=== PATIENT | female | born 1970 | race Caucasian/White ===

== ENCOUNTER 2017-04-18 00:44 | Emergency (ER) | payer OTHER, SELFPAY ==
[2017-04-18 00:51] VITALS: O2SAT 97
[2017-04-18] MEDS ORDERED: Sodium Chloride 0.9% 1000 ML 1,000 ML IV STA (01:08)
[2017-04-18] MEDS ORDERED: TORAdol 30 mg Injection IV ONE (01:08)
[2017-04-18] MEDS ORDERED: Vistaril 50 MG/ML IM ONE ×2 (01:09→01:14)
[2017-04-18 01:12] LABS: BASOPHIL % 0.2 % (0.0-0.4); Eosinophil % 1.6 % (0.00-5.0); Granulocytes % 55.4 % (36.0-66.0); Lymphocytes % 35.4 % (24.0-44.0); Mean Cell Volume 87.8 fl (78-100); Mean Corpuscular Hemoglobin 29.1 pg (26-32); Mean Platelet Volume 9.9 fl (6-9.5); Monocytes % 7.4 % (0.0-12.0); Platelet Count 367 K/mm3 (150-450); Red Blood Count 4.84 M/mm3 (4.1-5.4); Red Cell Distribution Width 13.6 % (11.5-14.0); White Blood Count 11.4 K/mm3 (4.0-10.5)
[2017-04-18] MEDS ORDERED: TORAdol 30 mg Injection ONE (01:14)
[2017-04-18] MEDS ORDERED: Sodium Chloride 0.9% 1000 ML 1,000 ML ONE (01:14)
--- NOTE | 2017-04-18 01:16 | ERPHSYRPT ---
- History of Present Illness Time Seen by Provider: 04/18/17 00:50 Source: patient Patient Subjective Stated Complaint: PT REPORTS LEFT LOW BACK PAIN RADIAITNG TO GROIN BEGINNING YESTERDAY-DENIES OBVIOUS BLOOD BURNING OR ITCHING WITH URINATION -STATES SHE HAS HAD KIDNEY STONES IN THE PAST ET IT FEELS LIKE THAT Triage Nursing Assessment: PT PINK WARM ET DRY-ABD TENDER TO PALP-RESP NONLABORED-NO OBVIOUS SIGNS OF INJURY ET PT DENIES INJURY Physician History: CC: left flank pain hx: 46 y/o patient from [place]. She has hx of kidney stones. She had three prior CT scans. She reports pain in left flank since yesterday. Normal urination. No fever or chills. No vomiting. Pain is sharp and severe. She is staying with her son who lives in [place]. She has a boyfriend named Natan in the car- he is the carbonr [facility] in [place] and she travels with him. Timing/Duration: yesterday Severity: severe Allergies/Adverse Reactions: acetaminophen [From Tylenol-Codeine #3] Allergy (Mild, Verified 04/18/17 00:46) Hives codeine phosphate [From Tylenol-Codeine #3] Allergy (Mild, Verified 04/18/17 00: 46) Hives Home Medications: No Home Meds 1 ea [facility] UD 02/06/16 [History] Hx Tetanus, Diphtheria Vaccination/Date Given: Yes Hx Influenza Vaccination/Date Given: No Hx Pneumococcal Vaccination/Date Given: No Immunizations Up to Date: Yes - Review of Systems Constitutional: No Fever, No Chills Eyes: No Symptoms Ears, Nose, & Throat: No Symptoms Respiratory: No Cough Cardiac: No Chest Pain Abdominal/Gastrointestinal: No Abdominal Pain, No Nausea, No Vomiting Genitourinary Symptoms: Flank Pain (left), No Dysuria, No Hematuria All Other Systems: Reviewed and Negative - Past Medical History Pertinent Past Medical History: Yes Neurological History: No Pertinent History ENT History: No Pertinent History Cardiac History: High Cholesterol Respiratory History: No Pertinent History Endocrine Medical History: Diabetes Type II Musculoskeletal History: No Pertinent History, Degenerative Disk Disease, Fractures, Other GI Medical History: No Pertinent History History: No Pertinent History Psycho-Social History: No Pertinent History Female Reproductive Disorders: No Pertinent History Other Medical History: back injury - Past Surgical History Past Surgical History: Yes Neuro Surgical History: No Pertinent History Cardiac: No Pertinent History Respiratory: No Pertinent History Gastrointestinal: Appendectomy Genitourinary: No Pertinent History Musculoskeletal: No Pertinent History Female Surgical History: Section, Hysterectomy, Tubal Ligation - Social History Smoking Status: Current every day smoker How long have you smoked: 36 Exposure to second hand smoke: Yes Drug Use: none Patient Lives Alone: No - Nursing Vital Signs Nursing Vital Signs: Initial Vital Signs Temperature 97.6 F Temperature Source Oral Pulse Rate 89 Respiratory Rate 20 Blood Pressure [Right Arm] 132/62 Pain Intensity 4 - Physical Exam General Appearance: alert Eye Exam: PERRL/EOMI Ears, Nose, Throat Exam: normal ENT inspection, moist mucous membranes Neck Exam: normal inspection, non-tender, supple Respiratory Exam: normal breath sounds, lungs clear Cardiovascular Exam: regular rate/rhythm Gastrointestinal/Abdomen Exam: soft, No tenderness, No distention Back Exam: normal inspection, normal range of motion, CVA tenderness (left) Extremity Exam: normal inspection, normal range of motion Neurologic Exam: alert, oriented x 3, cooperative, sensation nml, No motor deficits Skin Exam: warm, dry, No rash SpO2 Interpretation: normal SpO2: 97 Oxygen Delivery: Room Air Procedures - Additional Procedures Progress: Limited transabdominal sonogram per ERMS for left flank pain. Mild left hydronephrosis. - Course Nursing assessment & vital signs reviewed: Yes - CT Exams abd/pelvis CT Interpretation: Tele-radiologist Report (no acute, 2.6 AAA, lumbar degenerative disks) Ordered Tests: Active Orders 24 hr Category Date Time Status Clean Catch Urine Specimen STAT Care 04/18/17 01:03 Active IV Insertion STAT Care 04/18/17 01:08 Active ABDOMEN AND PELVIS W/0 CONTRAS [CT] Stat Exams 04/18/17 01:29 Taken CBC W DIFF Stat Lab 04/18/17 01:08 Completed CMP Stat Lab 04/18/17 01:08 Completed UA W/ MICROSCOPIC Stat Lab 04/18/17 01:08 Completed Medication Summary Generic Name Dose Route Start Last Admin Trade Name Freq PRN Reason Stop Dose Admin Hydrocodone Bitart/Acetaminophen 1 tab 04/18/17 02:37 [place] 5/325 Mg PO 04/18/17 02:38 STAT ONE Discontinued Medications Generic Name Dose Route Start Last Admin Trade Name Freq PRN Reason Stop Dose Admin Hydromorphone HCl 1 mg 04/18/17 01:29 04/18/17 01:34 Hydromorphone 1 Mg/Ml Ampule IV 04/18/17 01:30 1 mg STAT ONE Administration Hydromorphone HCl Confirm 04/18/17 01:31 Hydromorphone 1 Mg/Ml Ampule Administered 04/18/17 01:32 Dose 1 mg .ROUTE .STK-MED ONE Hydroxyzine HCl 50 mg 04/18/17 01:09 04/18/17 01:28 Vistaril 50 Mg/Ml IM 04/18/17 01:10 50 mg STAT ONE Administration Hydroxyzine HCl Confirm 04/18/17 01:14 Vistaril 50 Mg/Ml Administered 04/18/17 01:15 Dose 50 mg IM .STK-MED ONE Sodium Chloride 1,000 mls @ 999 mls/hr 04/18/17 01:08 04/18/17 01:28 Sodium Chloride 0.9% 1000 Ml IV 04/18/17 02:08 999 mls/hr .Q1H1M STA Administration Sodium Chloride Confirm 04/18/17 01:14 Sodium Chloride 0.9% 1000 Ml Administered 04/18/17 01:15 Dose 1,000 mls @ ud .ROUTE .STK-MED ONE Ketorolac Tromethamine 30 mg 04/18/17 01:08 04/18/17 01:28 Toradol 30 Mg Injection IV 04/18/17 01:09 30 mg STAT ONE Administration Ketorolac Tromethamine Confirm 04/18/17 01:14 Toradol 30 Mg Injection Administered 04/18/17 01:15 Dose 30 mg .ROUTE .STK-MED ONE Ondansetron HCl 4 mg 04/18/17 01:29 04/18/17 01:34 Zofran 4 Mg/2 Ml Vial IV 04/18/17 01:30 4 mg STAT ONE Administration Ondansetron HCl Confirm 04/18/17 01:31 Zofran 4 Mg/2 Ml Vial Administered 04/18/17 01:32 Dose 4 mg .ROUTE .STK-MED ONE Lab/Rad Data: Laboratory Result Diagrams 04/18/17 01:08 04/18/17 01:08 Laboratory Results 04/18/17 04/18/17 04/18/17 Range/Units 01:08 01:08 01:08 WBC 11.4 H (4.0-10.5) K/mm3 RBC 4.84 (4.1-5.4) M/mm3 Hgb 14.1 (12.0-16.0) gm/dl Hct 42.5 (35-47) % MCV 87.8 (78-100) fl MCH 29.1 (26-32) pg MCHC 33.2 (32-36) g/dl RDW 13.6 (11.5-14.0) % Plt Count 367 (150-450) K/mm3 MPV 9.9 H (6-9.5) fl Gran % 55.4 (36.0-66.0) % Lymphocytes % 35.4 (24.0-44.0) % Monocytes % 7.4 (0.0-12.0) % Eosinophils % 1.6 (0.00-5.0) % Basophils % 0.2 (0.0-0.4) % Basophils # 0.02 (0-0.4) Sodium 140 (136-145) mEq/L Potassium 3.2 L (3.5-5.1) mEq/L Chloride 104 (98-107) mEq/L Carbon Dioxide 24.5 (21-32) mEq/L Anion Gap 14.9 (5-15) MEQ/L BUN 12 (9-20) mg/dL Creatinine 1.08 (0.55-1.30) mg/dl Estimated GFR 58 ML/MIN Glucose 111 H (70-110) MG/DL Calcium 9.6 (8.5-10.1) mg/dL Total Bilirubin 0.30 (0.2-1.0) mg/dL AST 12 L (15-37) U/L ALT 15 (12-78) U/L Alkaline Phosphatase 103 (46-116) U/L Serum Total Protein 8.2 (6.4-8.2) gm/dL Albumin 3.6 (3.4-5.0) g/dL Ur Collection Type CLEAN CATCH Urine Color YELLOW (YELLOW) Urine Appearance SLIGHTLY CLOUDY (CLEAR) Urine pH 6.0 (5-6) Ur Specific [place] 1.010 (1.005-1.025) Urine Protein NEGATIVE (Negative) Urine Glucose (UA) NEGATIVE (NEGATIVE) mg/dL Urine Ketones NEGATIVE (NEGATIVE) Urine Nitrite NEGATIVE (NEGATIVE) Urine Bilirubin NEGATIVE (NEGATIVE) Urine Urobilinogen 0.2 (0-1) mg/dL Urine WBC (Auto) NEGATIVE (NEGATIVE) Urine RBC (Auto) MODERATE (0-5) Darron/ul Urine Microscopic RBC 25-50 (0-2) /HPF Ur Epithelial Cells FEW (FEW) /HPF Urine Bacteria RARE (NEGATIVE) /HPF Specimen Received [id number] - Progress Progress Note: 04/18/17 02:38 CT without sign of renal stone disease. Pt was advised early AAA needs follow up and she should quit smoking. She was given toradol, vistaril, zofran, dilaudid, and vicodin. Will release with instructions. She sees Dr Paulo Zazueta. 04/18/17 02:41 INSPECT reviewed and had several controlled Rx last month. Counseled pt/family regarding: lab results, diagnosis, need for follow-up, rad results, smoking cessation - Departure Time of Disposition: 02:39 Departure Disposition: Home Clinical Impression: Left flank pain Condition: Stable Critical Care Time: No Referrals: DOCTOR,NO FAMILY [Primary Care Provider] - Instructions: Abdominal Pain-Adult, Quit Smoking Additional Instructions: No driving today. Rx motrin=ibuprofen. You need to quit smoking. You need to have aorta rechecked. You need to follow up with Dr Paulo Zazueta in 1-2 days. Prescriptions: Ibuprofen 600 mg PO Q6H PRN PRN #20 tablet PRN Reason: Pain
[2017-04-18 01:21] LABS: Collection Type CLEAN CATCH
[2017-04-18 01:22] LABS: COMPLETE URINE MICROSCOPIC? YES; Epithelial Cells FEW /HPF (FEW)
[2017-04-18 01:23] LABS: ADD URINE CULTURE? NO (NO); Bacteria RARE /HPF (NEGATIVE)
[2017-04-18 01:29] LABS: ALBUMIN 3.6 g/dL (3.4-5.0); ANION GAP 14.9 MEQ/L (5-15); BILIRUBIN,TOTAL 0.3 mg/dL (0.2-1.0); Carbon Dioxide 24.5 mEq/L (21-32); Potassium 3.2 mEq/L (3.5-5.1); Total Protein 8.2 gm/dL (6.4-8.2)
[2017-04-18] MEDS ORDERED: Hydromorphone 1 mg/ml Ampule IV ONE (01:29)
[2017-04-18] MEDS ORDERED: Zofran 4 MG/2 ML VIAL IV ONE (01:29)
[2017-04-18] MEDS ORDERED: Hydromorphone 1 mg/ml Ampule ONE (01:31)
[2017-04-18] MEDS ORDERED: Zofran 4 MG/2 ML VIAL ONE (01:31)
[2017-04-18 02:30] VITALS: BP 132/62; PULSE 89
[2017-04-18] MEDS ORDERED: NORCO 5/325 MG PO ONE (02:37)
[2017-04-18] MEDS ORDERED: NORCO 5/325 MG ONE (02:39)
--- NOTE | 2017-04-18 09:07 | XRAY ---
Indication: Left flank pain. Nausea and vomiting. Multiple contiguous axial images obtained through the abdomen and pelvis without contrast using renal stone protocol. Comparison: September 14, 2015. Lung bases remain clear. Heart is not enlarged. No renal calculus or evidence for obstructive uropathy in either system. Previous cholecystectomy, appendectomy, and hysterectomy. Noncontrasted stomach and bowel loops nonobstructed. Remaining liver, pancreas, spleen, adrenal glands, kidneys, ureters, and bladder appear unremarkable for noncontrast exam. Mild calcifications of the aortoiliac vessels again with 2.5 cm distal aortic fusiform aneurysm. Osseous structures intact again with lower lumbar degenerative changes and L1 superior Schmorl node. Impression: 1. No renal calculus or evidence for obstructive uropathy in either system. 2. Stable 2.5 cm distal AAA. 3. No new/acute intra-abdominal/pelvic abnormalities on this noncontrast exam. Comment: Preliminary interpretation was made by C. No discrepancy. CTDI 22.61
== END 2017-04-18 02:47 | disposition home or self-care (01) ==
LOC: ED 00:44
DX: R10.9 Unspecified abdominal pain (principal); Z87.442 Personal history of urinary calculi
CPT/HCPCS: 36000; 36415; 74176; 76705; 80053; 81000; 85025; 96360; 96372; 96374; 96375; 99284; 99285; J1170; J1885; J2405; J3410; A9270-GY